=== PATIENT | male | born 1955 | race Caucasian/White ===

== ENCOUNTER 2018-02-17 15:05 | Emergency (ER) | payer BC ==
[2018-02-17 15:21] VITALS: TEMP 97.9
[2018-02-17] MEDS ORDERED: MAGNESIUM CITRATE 296 ML BOTTLE PO ONE (16:20)
[2018-02-17] MEDS ORDERED: BISACODYL 5 MG TABLET.DR PO STA (17:16)
--- NOTE | 2018-02-17 17:47 | XR ---
EXAMINATION TYPE: XR abdomen 2V DATE OF EXAM: 02/17/2018 COMPARISON: 12/23/2015 chest x-ray HISTORY: Abdominal pain TECHNIQUE: Supine and upright views FINDINGS: There is no sign of intestinal obstruction or pneumoperitoneum. There are a few intestinal fluid levels. No pathologic calcifications over the kidneys. IMPRESSION: Intestinal fluid levels could relate to ileus and diarrhea. No free air. Bowel appears si milar to old exam.
[2018-02-17] MEDS ORDERED: SODIUM CHLORIDE 0.9% 1,000 ML IV STA (18:02)
[2018-02-17] MEDS ORDERED: SODIUM CHLORIDE 0.9% 500 ML 500 ML IV STA (18:02)
[2018-02-17 18:37] LABS: Basophils % (A) 1 %; Eosinophils # (A) 0.1 k/uL (0-0.7); Eosinophils % (A) 2 %; HCT 43.6 % (39.0-53.0); HGB 15.2 gm/dL (13.0-17.5); Lymphocytes # (A) 1.2 k/uL (1.0-4.8); Lymphocytes % (A) 30 %; MCH 31.8 pg (25.0-35.0); MCHC 34.9 g/dL (31.0-37.0); MCV 91.1 fL (80.0-100.0); Monocytes # (A) 0.1 k/uL (0-1.0); Monocytes % (A) 4 %; Neutrophils # (A) 2.5 k/uL (1.3-7.7); Neutrophils % (A) 62 %; Platelet Count 195 k/uL (150-450); RBC 4.79 m/uL (4.30-5.90); RDW 12.3 % (11.5-15.5)
[2018-02-17 18:49] LABS: Partial Thromboplastin Time 25.6 sec (22.0-30.0)
[2018-02-17 18:50] LABS: ALT 35 U/L (21-72); AST 30 U/L (17-59); Albumin 3.8 g/dL (3.5-5.0); Alkaline Phosphatase 49 U/L (38-126); Amylase 35 U/L (30-110); Anion Gap 7 mmol/L; Blood Urea Nitrogen 8 mg/dL (9-20); Calcium 8.7 mg/dL (8.4-10.2); Carbon Dioxide 26 mmol/L (22-30); Chloride 107 mmol/L (98-107); Glucose 85 mg/dL (74-99); Lipase 90 U/L (23-300); Potassium 3.8 mmol/L (3.5-5.1); Sodium 140 mmol/L (137-145); Total Bilirubin 1.1 mg/dL (0.2-1.3); Total Protein 6.6 g/dL (6.3-8.2)
[2018-02-17 19:05] VITALS: BP 144/91; PULSE 73; RESP 18
--- NOTE | 2018-02-17 20:18 | CT ---
EXAMINATION TYPE: CT abdomen pelvis w con DATE OF EXAM: 02/17/2018 COMPARISON: None HISTORY: abdominal pain, obstruction CT DLP: 885.5 mGycm Automated exposure control for dose reduction was used. TECHNIQUE: Helical acquisition of images was performed from the lung bases through the pelvis. CONTRAST: Performed without Oral Contrast and with IV Contrast, patient injected with 100 mL of Isovue 300. FINDINGS: Lung bases are clear. There is no pleural effusion. There is no pericardial effusion. Liver spleen pancreas gallbladder appear normal. Bile ducts are not dilated. There is small hiatal he rnia. There is no adrenal mass. Kidneys show satisfactory contrast opacification. There is no hydronephrosi s. Appendix appears normal. Ureters are not dilated. There is no retroperitoneal adenopathy. Bladder distends smoothly. There is no free fluid in the pelvis. There is no inguinal hernia. There is no mayte dence of a bowel obstruction. There is no mesenteric edema or adenopathy. There is large bowel fluid levels. The lumbar spine is intact. I see no bony destructive process. The prostate is enlarged and m easures 5 cm. IMPRESSION: NORMAL APPENDIX. NO EVIDENCE OF A BOWEL OBSTRUCTION. LARGE BOWEL FLUID LEVELS CONSISTENT WITH DIARRHE A AND ILEUS.
[2018-02-17] MEDS ORDERED: MORPHINE SULFATE 4 MG/ML SYRINGE IV STA (21:14)
--- NOTE | 2018-02-17 21:19 | ED ---
Abdominal Pain HPI - General Chief Complaint: Abdominal Pain Stated Complaint: Bowl obstruction Time Seen by Provider: 02/17/18 16:04 Source: patient Mode of arrival: ambulatory Limitations: no limitations - History of Present Illness Initial Comments: This 62-year-old white male presents with a complaint of some diffuse abdominal pain. He feels as though it is related to constipation. He states that he has been dealing with this for approximately 4 years. He states that he is not able to have a bowel movement without giving himself an enema. He states that he will administer to quarts of warm water rectally at least daily. He then will only be able to defecate while standing up in the shower. He apparently has been seen by multiple specialists including specialist at [facility] , [facility], and [facility]. He is gone through a multitude of tests including computed tomography scan, colonoscopies, and other tests. He has a detailed list of all the testing and physicians that he has seen extremely organized with him. He states that nobody can figure out the exact cause of his symptoms. He denies any fevers, chills, diarrhea, nausea , or vomiting. - Related Data Home Medications Medication Instructions Recorded Confirmed Enalapril/Hydrochlorothiazide 1 tab PO DAILY 12/23/15 02/17/18 [Vaseretic 10-25 mg] Lactulose 20 gm PO TID 02/17/18 02/17/18 Previous Rx's Medication Instructions Recorded Dicyclomine [Bentyl] 20 mg PO QID PRN #20 tablet 02/17/18 Allergies Allergy/AdvReac Type Severity Reaction Status Date / Time No Known Allergies Allergy Verified 02/17/18 15:49 Review of Systems ROS Statement: Those systems with pertinent positive or pertinent negative responses have been documented in the HPI. ROS Other: All systems not noted in ROS Statement are negative. Past Medical History Past Medical History: Hypertension Additional Past Medical History / Comment(s): constipation History of Any Multi-Drug Resistant Organisms: None Reported Additional Past Surgical History / Comment(s): polyp removal Past Psychological History: No Psychological Hx Reported Smoking Status: Never smoker Past Alcohol Use History: None Reported Past Drug Use History: None Reported General Exam - General Exam Comments Initial Comments: GENERAL: The patient is well nourished and well hydrated. VITAL SIGNS: Heart rate, blood pressure, respiratory rate reviewed as recorded in nurse's notes. EYES: Pupils are round and reactive. Extraocular movements are intact. No conjunctival / lid redness or swelling. ENT: No external evidence of injury, swelling, or ecchymosis. Airway is patent. Throat is clear. NECK: Nontender. No swelling or evidence of injury. No subcutaneous emphysema. Trachea is midline. No thyroid mass. HEART: Regular rate and rhythm. Good peripheral pulses. LUNGS/CHEST: Breath sounds clear and equal bilaterally. No rales, rhonchi, or wheezes. No ecchymosis, subcutaneous emphysema, or tenderness. ABDOMEN: There is mild diffuse tenderness. No palpable masses or organomegaly. No peritoneal signs. No abdominal wall swelling or ecchymosis. EXTREMITIES: No extremity tenderness. Normal muscle tone and function. No thoracolumbar tenderness. NEUROLOGIC: Sensation is grossly intact. Cranial nerve exam reveals face is symmetrical, tongue is midline, speech is clear. SKIN: No abrasions or ecchymosis is noted. No induration or masses noted. PSYCHIATRIC: Alert and oriented. Appropriate behavior and judgment. Limitations: no limitations Course Vital Signs 02/17/18 02/17/18 15:18 19:01 Temperature 97.9 F Pulse Rate 66 73 Respiratory 16 18 Rate Blood Pressure 178/104 144/91 O2 Sat by Pulse 96 97 Oximetry Medical Decision Making - Medical Decision Making The patient was seen and examined. A soapsuds enema and initially was given with mild production. The patient then had a bottle of magnesium citrate ordered but he refuses this medication. The patient had an acute abdominal series done and this does show multiple air-fluid levels. The patient's labs were all essentially within normal limits. He later had a computed tomography scan of the abdomen and pelvis done which did show multiple air-fluid levels consistent with possible ileus. No acute processes otherwise identified. He was hydrated and does receive morphine intravenously 4 mg. The exact cause of his symptoms are not definitively determined. He has had extensive workup for this chronic condition already. He states that he is trying to follow-up at [facility] for their recommendations. It is felt as though he stable for discharge with close follow-up with his doctor and possible referral to [facility]. He is informed that there is no evidence of constipation currently noted in that he should stop doing the to quarts of water rectally daily. - Lab Data Result diagrams: 02/17/18 18:20 18 18:20 Lab Results 02/17/18 02/17/18 02/17/18 Range/Units 18:20 18:20 18:20 WBC 4.0 (3.8-10.6) k/uL RBC 4.79 (4.30-5.90) m/uL Hgb 15.2 (13.0-17.5) gm/dL Hct 43.6 (39.0-53.0) % MCV 91.1 (80.0-100.0) fL MCH 31.8 (25.0-35.0) pg MCHC 34.9 (31.0-37.0) g/dL RDW 12.3 (11.5-15.5) % Plt Count 195 (150-450) k/uL Neutrophils % 62 % Lymphocytes % 30 % Monocytes % 4 % Eosinophils % 2 % Basophils % 1 % Neutrophils # 2.5 (1.3-7.7) k/uL Lymphocytes # 1.2 (1.0-4.8) k/uL Monocytes # 0.1 (0-1.0) k/uL Eosinophils # 0.1 (0-0.7) k/uL Basophils # 0.0 (0-0.2) k/uL PT 11.0 (9.0-12.0) sec INR 1.0 (<1.2) APTT 25.6 (22.0-30.0) sec Sodium 140 (137-145) mmol/L Potassium 3.8 (3.5-5.1) mmol/L Chloride 107 (98-107) mmol/L Carbon Dioxide 26 (22-30) mmol/L Anion Gap 7 mmol/L BUN 8 L (9-20) mg/dL Creatinine 0.78 (0.66-1.25) mg/dL Est GFR (CKD-EPI)AfAm >90 (>60 ml/min/1.73 sqM) Est GFR (CKD-EPI)NonAf >90 (>60 ml/min/1.73 sqM) Glucose 85 (74-99) mg/dL Calcium 8.7 (8.4-10.2) mg/dL Total Bilirubin 1.1 (0.2-1.3) mg/dL AST 30 (17-59) U/L ALT 35 (21-72) U/L Alkaline Phosphatase 49 (38-126) U/L Total Protein 6.6 (6.3-8.2) g/dL Albumin 3.8 (3.5-5.0) g/dL Amylase 35 (30-110) U/L Lipase 90 (23-300) U/L Disposition Clinical Impression: Abdominal pain Disposition: HOME SELF-CARE Instructions: Abdominal Pain (ED) Prescriptions: Dicyclomine [Bentyl] 20 mg PO QID PRN #20 tablet PRN Reason: Pain Is patient prescribed a controlled substance at d/c from ED?: No Referrals: Gulshan Ovalles MD [Primary Care Provider] - 1-2 days Time of Disposition: 21:19
== END 2018-02-17 21:46 | disposition home or self-care (01) ==
LOC: EC 15:05
DX: R10.84 Generalized abdominal pain (principal); I10 Essential (primary) hypertension; Z53.29 Procedure and treatment not carried out because of patient's decision for other reasons; Z53.8 Procedure and treatment not carried out for other reasons; Z79.899 Other long term (current) drug therapy
CPT/HCPCS: 36415; 80053; 82150; 83690; 85025; 85610; 85730; 74019; 74177; 99284; 96360; 96361 ×2; Q9967

== ENCOUNTER → 2018-10-20 | Outpatient (CLI) | payer BC ==
--- NOTE | 2018-10-20 16:10 | US ---
EXAMINATION TYPE: US abdomen complete DATE OF EXAM: 10/20/2018 COMPARISON: Correlation CT 02/17/2018 CLINICAL HISTORY: 63-year-old male R10.12 ABD PAIN. Pt states feeling ABD pressure and palpable midli ne/left of umbilicus x 5 years TECHNIQUE: Multiple sonographic images of the abdomen are obtained. FINDINGS: EXAM MEASUREMENTS: Liver Length: 15.0 cm Gallbladder Wall: 0.2 cm CBD: 0.4 cm Spleen: 11.3 cm Right Kidney: 10.9 x 6.8 x 4.9 cm Left Kidney: 11.0 x 6.3 x 4.2 cm Pancreas: wnl, tail obscured by overlying bowel gas Liver: wnl. No focal lesion. Gallbladder: wnl Evidence for sonographic Marshall's sign: No CBD: wnl Spleen: wnl Right Kidney: wnl Left Kidney: wnl Upper IVC: wnl Abd Aorta: Proximal abdominal aorta is ectatic and 2.6 cm. Event Marketing Intern notes:In area of midline/left of umbilicus where pt feels pressure and palpable shows a superficial, hyperechoic area= 1.2 x 0.6 x 0.7 cm, otherwise no other abnormality could be appreciat ed. This seems to be directly deep to the skin surface within the subcutaneous adipose layer. IMPRESSION: 1. An echogenic area directly deep to the skin surface within the subcutaneous adipose layer to the l eft of the umbilicus corresponding to the palpable site. The exact etiology is unclear. Possible smal l subcutaneous lipoma, area of fat necrosis, or subcutaneous bruising. 2-3 month follow-up ultrasound can be performed to reassess. 2. 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
== END | disposition home or self-care (01) ==
LOC: RADUSWWP 11:58
PROVIDERS: ATTEND Internal Medicine
DX: I77.811 Abdominal aortic ectasia (principal)
CPT/HCPCS: 76700